=== PATIENT | female | born 1995 | race Two or more races ===

== ENCOUNTER 2018-03-14 08:50 | Emergency (ER) | payer OTHER ==
[~2018-03-14] VITALS: Ht 160 cm; Wt 80.3 kg
--- NOTE | 2018-03-14 09:21 | PHYS DOC ---
Past History Past Medical History: No Pertinent History Past Surgical History: No Surgical History Alcohol Use: None Drug Use: None Adult General Chief Complaint Chief Complaint: LOWER EXT PAIN HPI HPI 22-year-old female presenting to the emergency department with right foot pain. She denies any recent injury. The pain as a sharp shooting pain that is nonradiating intermittent and without leaving factors. It started yesterday. She reports not being able to walk but she was able to walk here in the emergency department without any difficulty. Otherwise she denies being . Review of systems is negative for chest pain shortness of breath abdominal pain nausea vomiting fevers or chills. All other review of systems is negative unless otherwise noted in history of present illness. ED course: 22-year-old female presenting with right foot pain. Vitals unremarkable. Foot x-ray obtained which was unremarkable. Exam unremarkable. The patient has been examined and was not found to have an emergency medical condition. The patient was then discharged home in stable condition to follow up with their primary care physician over the next 2-3 days. They were to return if their symptoms worsened or if they were concerned for any reason. They were also instructed to return to the emergency department if they were unable to get the recommended and appropriate follow-up. [id number] discharge instructions and return precautions were given. Patient's questions were answered to their satisfaction. Patient is comfortable with plan. Review of Systems Review of Systems SEE ABOVE. Allergies Allergies Allergies Coded Allergies Type Severity Reaction Last Updated Verified nitrofurantoin Allergy Unknown rash 03/14/18 Yes Physical Exam Physical Exam Constitutional: Well developed, well nourished, no acute distress, non-toxic appearance. [] HENT: Normocephalic, atraumatic, bilateral external ears normal, oropharynx moist, no oral exudates, nose normal. [] Eyes: PERRLA, EOMI, conjunctiva normal, no discharge. Neck: Normal range of motion, no tenderness, supple, no stridor. [] Cardiovascular:Heart rate regular rhythm, no murmur [] Lungs & Thorax: Bilateral breath sounds clear to auscultation Abdomen: Bowel sounds normal, soft, no tenderness, no masses, no pulsatile masses. [] Skin: Warm, dry, no erythema, no rash. [] Back: No tenderness, no CVA tenderness. Extremities: The remainder of extremities are neurovascularly intact nontender and without any abnormality. Right leg has no tenderness palpation in the hip or knee with good range of motion in both joints. No ecchymosis or swelling of the ankle. No pain to palpation on the medial or lateral malleolus. There is mild tenderness to palpation over the right fifth metatarsal. No ecchymosis swelling or erythema. The foot is normal temperature to touch. Good range of motion of the ankle. The patient fires the TA, EH, FHL and Gastrocnemius soleus complex. Normal sensation in the deep peroneal, superficial peroneal, Sural, saphenous, medial and lateral tibial and calcaneal sensory nerves in the foot. 2+ PT and DP pulse. There is not any bruising, ecchymosis, lacerations or abrasions of the skin. Neurologic: Alert and oriented X 3, normal motor function, normal sensory function, no focal deficits noted. [] Psychologic: Affect normal, judgement normal, mood normal. [] EKG EKG [] Radiology/Procedures Radiology/Procedures [] Course & Med Decision Making Course & Med Decision Making Pertinent Labs and Imaging studies reviewed. (See chart for details) [] Dragon Disclaimer Dragon Disclaimer This electronic medical record was generated, in whole or in part, using a voice recognition dictation system. Departure Departure: Impression: Primary Impression: Foot pain, right Disposition: 01 HOME, SELF-CARE Condition: STABLE Referrals: DENIS VYAS MD Patient Instructions: Foot Sprain-Brief Additional Instructions: Thank you for allowing us to participate in your care today. Return to the emergency department you have any new or worsening symptoms, or if you are concerned for any reason. Return to emergency department if you have any new or concerning symptoms including but not limited to fever, chills, nausea, vomiting, intractable pain, any new rashes, chest pain, shortness of air , uncontrolled bleeding, difficulty breathing, and/or vision loss. Follow up with your primary care physician within 3 days. Call your Primary Doctor tomorrow and inform them of your visit today. If you do not have a primary care provider we are happy to provide you with a list of our primary care providers contact information. This condition should be evaluated by your primary care physician and any recommended consulting services for continued management within 2-3 days after discharge. If at any time, you are having difficulty getting into your primary care doctor or a specialist, return to the emergency department. ALPHONSO AGUILAR MD Mar 14, 2018 09:21
[2018-03-14 09:43] LABS: PREG TEST PT QUAL NEGATIVE (NEG)
--- NOTE | 2018-03-14 10:13 | RAD ---
INDICATION: Intermittent foot pain. TECHNIQUE: 3 views of the right foot are submitted for review. No comparison is available. FINDINGS: There is no fracture or dislocation. Small accessory ossicle is noted near the cuboid. It appears well-corticated. There is no soft tissue swelling. IMPRESSION: Negative for fracture. Electronically signed by: Logan Westbrook MD (03/14/2018 10:10 AM) [facility]
[2018-03-14] MEDS ORDERED: IBUPROFEN 400 MG TABLET. PO ONE (10:15)
[2018-03-14 10:30] VITALS: BP 112/66
== END 2018-03-14 10:30 | disposition home or self-care (01) ==
LOC: ER 08:50
DX: M79.671 Pain in right foot (principal); Z88.8 Allergy status to other drugs, medicaments and biological substances
CPT/HCPCS: 73630; 84703; 99285